=== PATIENT | female | born 1965 | race Caucasian/White ===

== ENCOUNTER 2025-02-13 17:30 | Inpatient (IN) ==
--- NOTE | 2025-02-13 17:55 | Emergency Department Note ---
Impression & Plan Right tibial fracture, Fall ED Provider Note CHIEF COMPLAINT: Fall HISTORY OF PRESENTING ILLNESS: This 59-year-old female patient presents to the emergency department via EMS with her for evaluation after a fall. The patient states that she was stepping up onto a milk crate using her left leg and when she went to put the right leg up on the milk crate, the milk crate went out from under her and she fell. She is unsure exactly how she landed. She is now having pain from the right knee down the lower leg. She had nausea immediately after she fell, but denies any nausea currently. She denies any vomiting. She did not hit her head. There was no loss of consciousness. She is not on any blood thinners. She denies any neck or back pain from the fall. Denies any pain in her arms or her left leg. Denies any chest pain, SOB, abdominal pain, or vomiting. She had a right knee arthroscopic surgery in 2013 by [facility], but does not remember what it was for. She denies any other previous injuries to the right knee. REVIEW OF SYSTEMS: See HPI for pertinent positives and pertinent negatives. ALLERGIES: NKDA, but she does not want to take Augmentin or Scopolamine MEDICATIONS: Prilosec 20 mg QD, Atorvastatin QHS, Ozempic 1 mg PAST MEDICAL HISTORY: History of gastric bypass surgery. High cholesterol. Diabetes. Fibromyalgia. Right knee arthroscopy PHYSICAL EXAM: VITALS: Vitals are noted on the nurse's note and reviewed by myself. GENERAL: No acute distress, non-diaphoretic. SKIN: The skin was without obvious lacerations or abrasions. Capillary reflex less than 2 seconds. HEAD: Normocephalic. No scalp tenderness or step-offs felt. EYES: Pupils equal round and reactive to light and accommodation. Conjunctivae without injection, sclerae without icterus. Extraocular movements intact. No nystagmus. MOUTH: Mucous membranes moist. Pharynx without erythema or exudate. Uvula midline. Airway patent. Tongue does not deviate. NECK: Supple without nuchal rigidity. Cervical spine is nontender. Full range of motion of the neck without tenderness. HEART: Regular rate and rhythm without murmurs gallops or rubs. LUNGS: Clear to auscultation bilaterally without wheezes, rales or rhonchi. No retractions or accessory muscle use. CHEST: No chest wall tenderness. ABDOMEN: Positive bowel sounds x 4. Normal tympanic percussion. Soft, nontender, without masses or organomegaly. No guarding or rebound tenderness. MUSCULOSKELETAL: No tenderness of the thoracic or lumbar spine. No tenderness with pelvic rocking. The patient is maximally tender to palpation over the entire right knee. Also mild tenderness to palpation into the mid to proximal right tib-fib. Initially the patient had no pain or tenderness to palpation of the right hip, but throughout her stay, she did develop pain in the right hip. No tenderness to palpation over the remainder of the right lower extremity. She is unable to move the right knee at all due to significant pain. She still has normal sensation to light and sharp touch of the right lower extremity with normal warmth. Full range of motion without tenderness to palpation in all remaining extremities. Peripheral pulses 2+ and equal in the bilateral upper and lower extremities. NEURO: Patient was alert and oriented to person place and time. Normal mental status exam. Normal sensation to light and sharp touch. No focal neurological deficits. DIFFERENTIAL DIAGNOSIS: Differential diagnosis includes concussion, contusion, fracture, subluxation, dislocation, subdural hematoma, epidural hematoma, intraparenchymal hemorrhage, contusion, ligamentous injury, neurovascular, compartment syndrome, rhabdomyolysis, intra-abdominal injury, splenic rupture, hepatic rupture, rib fractures, cardiac contusion, pneumothorax, hemothorax, cardiac tamponade, intrathoracic injury, neurologic, as well as other pathologies. ED COURSE AND MEDICAL DECISION MAKING: MEDICATIONS GIVEN: Morphine 6 mg IM and Zofran 4 mg ODT. 500 mL normal saline solution bolus. Phenergan 25 mg IV. Dilaudid 0.25 mg IV. INTERPRETATION OF LABS: I interpreted the labs with full lab results as below in the lab section of this note. Laboratory results pertinent to the emergent complaint are discussed in the MDM section below. The patient was advised to follow up with their PCP and/or specialist(s) for further outpatient monitoring and management of any abnormal results. INTERPRETATION OF IMAGING: Imaging studies were interpreted by myself and read by radiology as per the imaging section of this note. The patient was advised to follow up with their PCP and/or specialist(s) for further outpatient management of any non-emergent abnormal findings. X-rays of the right knee and tib-fib show an acute comminuted intra-articular fracture of the proximal right tibia with an associated lipohemarthrosis. X- rays of the right hip with pelvis were negative for acute fracture or dislocation. CT scan of the right knee without contrast with 3D reconstruction show a comminuted impacted fracture primarily involving the lateral tibial plateau with up to 1 cm impaction noted. A component of the fracture extends in a vertical plane along the anterior and posterior tibial cortex extending approximately 5 cm from the tibial plateau. Small volume traumatic suprapatellar joint effusion with a fat/fluid level. CONSULTATIONS: Parrish Gregory PA-C of orthopedics. On-call hospitalist. SPLINTING: Definitive fracture care was performed by myself. The patient was placed in a knee immobilizer under my direction. Neurovascular status was rechecked and intact. MDM SUMMARY: The patient was seen during a time of extreme volume and extreme acuity. Nursing triage protocols were initiated with imaging studies conducted by protocol in the triage area. The patient was initially evaluated in a sub- waiting room and then re-evaluated once they were taken back to an exam room. The patient was trying to step up onto a milk crate when the milk crate went out from under her causing an injury to the right knee and lower leg. The patient denies any injury other than the right knee and lower leg. However, she did develop some right hip pain during her stay. The patient denies hitting her head. She is not on any blood thinners. She is unable to move the right knee or bear any weight. The patient was initially given morphine 6 mg IM and Zofran 4 mg ODT. X-rays of the right knee and tib-fib show an acute comminuted intra-articular fracture of the proximal right tibia with an associated lipohemarthrosis. X-rays of the right hip with pelvis were negative for acute fracture or dislocation. I spoke with Parrish Gregory PA-C of orthopedics who discussed the case with Dr. Harrison. The recommendation was to obtain a CT scan of the knee with 3D reconstruction. The patient is to be placed in a knee immobilizer with nonweightbearing status. The patient could then be sent home with follow-up visit Monday if her pain was able to be controlled. The patient was placed in the knee immobilizer. The patient required additional pain medication so an IV was placed and labs were drawn. The patient was given 500 mL NSS bolus, Dilaudid 0.25 mg IV and Phenergan 25 mg IV for some additional nausea. CT scan of the right knee without contrast with 3D reconstruction show a comminuted impacted fracture primarily involving the lateral tibial plateau with up to 1 cm impaction noted. A component of the fracture extends in a vertical plane along the anterior and posterior tibial cortex extending approximately 5 cm from the tibial plateau. Small volume traumatic suprapatellar joint effusion with a fat/fluid level. White blood cell count mildly elevated 11.54. Hemoglobin normal at 15.7. Platelet count normal at 261. Coags were normal. Glucose 118, AST 62, and alk phos 130. CMP otherwise normal. I discussed discharge home with outpatient orthopedic follow-up with the patient. However, the patient stated that anytime she tried to move the leg she had increased pain. The patient was unable to ambulate even to the bathroom in the ER due to her pain and difficulty with ambulation from the tibial plateau fracture. The patient states that her also recently had back surgery and is unable to help care for her at home. Therefore, it was felt the patient would benefit from admission for ambulatory dysfunction from the tibial plateau fracture and for continued pain control. I spoke with the on-call hospitalist who agreed to admit the patient for further evaluation and treatment. Please refer to their dictation for further details. The patient's care was transferred in stable condition. DIAGNOSIS: Right tibial plateau fracture Fall Past Med/Surg History Problem List (Updated 02/14/25 @ 02:31 by Joseline Frazier PA-C) Fall (Acute) Right tibial fracture (Acute) Social History Smoking Status: Never smoker Preferred Language: Lao Feels Safe at Home: Yes Allergies Allergies Allergy/AdvReac Type Severity Reaction Status Date / Time amoxicillin [From Augmentin] AdvReac Intermediate Vomiting Verified 02/13/25 21:47 clavulanic acid AdvReac Intermediate Vomiting Verified 02/13/25 21:47 [From Augmentin] pregabalin [From Lyrica] AdvReac Unknown CONTRAINDICATED Verified 02/13/25 21:47 WITH GASTRIC BYPASS Home Meds Home Medications Medication Instructions Recorded Confirmed atorvastatin 20 mg tablet 20 mg PO HS 02/13/25 02/13/25 calcium 500 mg (as citrate)-vit D3 1 tab PO HS 02/13/25 02/13/25 12.5 mcg (500 unit) chewable tablet cyanocobalamin (vitamin B-12) 1,000 mcg IM .Q OTHER MONTH 02/13/25 02/13/25 1,000 mcg/mL injection solution loratadine 10 mg tablet (Claritin) 10 mg PO DAILY 02/13/25 02/13/25 multivitamin with iron 1 tab PO DAILY 02/13/25 02/13/25 omega [id number]-fish oil 1,000 mg 1 cap PO HS 02/13/25 02/13/25 (120 mg-180 mg) capsule (Fish Oil) omeprazole 20 mg capsule,delayed 20 mg PO QAM 02/13/25 02/13/25 release semaglutide 1 mg/dose (4 mg/3 mL) 1 mg subcut WK 02/13/25 02/13/25 subcutaneous pen injector (Ozempic) Results & Data (ED) Vital Signs Vital Signs - 24 hr 02/13/25 17:42 02/13/25 20:36 02/13/25 22:30 Temperature 36.7 C Temperature Source Skin Pulse Rate 71 Pulse Rate [Right Finger] 88 69 Pulse Rhythm [Right Finger] Regular Pulse Strength [Right Finger] Normal Respiratory Rate 18 17 18 Respiratory Effort / Characteristics Non-Labored Spontaneous Non-Labored Spontaneous Non-Labored Spontaneous Respiratory Depth Normal Normal Normal Respiratory Pattern Regular Regular Regular Blood Pressure 130/69 Blood Pressure [Right Arm] 128/58 L 136/64 Blood Pressure Mean 89 Blood Pressure Mean [Right Arm] 81 88 Blood Pressure Position [Right Arm] Lying Pulse Oximetry 98 94 95 Oxygen Delivery Method Room Air Room Air Room Air Sepsis Recent Fever Within 48 Hours No Sepsis New/Unexplained Change in Mental Status N/A Sepsis Action Taken by Nursing No Action Required Laboratory Data 02/13/25 19:47 02/13/25 19:47 Lab Results 02/13/25 Range/Units 19:47 WBC 11.54 H (4.8-10.8) K/ul RBC 5.24 (4.20-5.40) M/uL Hgb 15.7 (12.0-16.0) g/dl Hct 45.1 (37.0-47.0) % MCV 86.1 (80.0-100.0) fL MCH 30.0 (25.0-34.0) pg MCHC 34.8 (32.0-36.0) g/dL RDW Std Deviation 39.3 (36.4-46.3) fL RDW Coeff of Amol 12.6 (11.5-14.5) % Plt Count 261 (130-400) K/uL MPV 10.7 (9.4-12.4) fL Immature Gran % (Auto) 0.3 % Neut % (Auto) 82.3 % Lymph % (Auto) 12.7 % [place] % (Auto) 3.8 % Eos % (Auto) 0.4 % Baso % (Auto) 0.5 % Neut # (Auto) 9.49 H (1.40-6.50) K/uL Lymph # (Auto) 1.47 (1.20-3.40) K/uL [place] # (Auto) 0.44 (0.11-0.59) K/uL Eos # (Auto) 0.05 (0.00-0.50) K/uL Baso # (Auto) 0.06 (0.00-0.20) K/uL Immature Gran # (Auto) 0.03 (0.01-0.20) K/uL PT 10.9 (9.0-12.0) Seconds INR 1.0 (0.9-1.1) APTT 26 (21-31) Seconds PTT Ratio 1.0 Sodium 139 (136-145) mmol/L Potassium 3.7 (3.5-5.1) mmol/L Chloride 102 (98-107) mmol/L Carbon Dioxide 28 (21-32) mmol/L Anion Gap 9 (3-11) BUN 20 (6-23) mg/dl Creatinine 0.80 (0.6-1.2) mg/dl Est Cr Clr Drug Dosing Not Reportable eGFR 84.30 BUN/Creatinine Ratio 25.0 H (10-20) Glucose 118 H (70-99(Fasting)) mg/dl Calcium 9.9 (8.6-10.3) mg/dl Total Bilirubin 0.8 (0.2-1.0) mg/dl AST 62 H (13-39) U/L ALT 40 (7-52) U/L Alkaline Phosphatase 130 H (34-104) U/L Total Protein 7.7 (6.0-8.3) gm/dl Albumin 4.5 (3.4-5.0) gm/dl Globulin 3.2 (2.5-4.0) gm/dl Albumin/Globulin Ratio 1.4 (0.9-2) Administered Medications Discontinued Medications Hydromorphone HCl (Hydromorphone Inj 0.5 Mg/0.5 Ml Syr) 0.25 mg IV NOW STA Stop: 02/13/25 21:27 Last Admin: 02/13/25 21:29 Dose: 0.25 mg Documented By: RAMÓN Promethazine HCl (Phenergan) 25 mg in 51 mls @ 204 mls/hr IV NOW STA Stop: 02/13/25 19:54 Last Infusion: 02/13/25 20:08 Dose: Infused Documented By: Admin: 02/13/25 19:53 Dose: 204 mls/hr Documented By: RAMÓN Sodium Chloride (Nss) 500 mls @ 999 mls/hr IV .Q31M ONE Stop: 02/13/25 20:13 Last Infusion: 02/13/25 20:25 Dose: Infused Documented By: Admin: 02/13/25 19:53 Dose: 999 mls/hr Documented By: RAMÓN Morphine Sulfate (Morphine Sulfate 10 Mg/Ml Carp/Vial) 6 mg IM NOW STA Stop: 02/13/25 18:47 Last Admin: 02/13/25 19:11 Dose: 6 mg Documented By: DENIZ Ondansetron HCl (Ondansetron 4 Mg Od Tab) 4 mg PO NOW STA Stop: 02/13/25 18:47 Last Admin: 02/13/25 19:11 Dose: 4 mg Documented By: DENIZ Imaging Data Radiologist's Impression: Knee X-Ray 02/13/25 17:51 Clinical History: Trauma 2 views of the right knee are submitted for review. Findings: There is an acute mildly depressed fracture of the lateral tibial plateau, with a nondisplaced fracture line extending into the proximal tibial metaphysis No subluxation or dislocation is seen. No significant arthritic changes are noted. No other osseous abnormality is identified. There are no radiopaque foreign bodies. There is a large knee effusion with a fat fluid level Impression: Acute comminuted intra-articular fracture of the proximal right tibia, with an associated lipohemarthrosis ACT 112: Positive. There are findings on this exam that require communication between the performing entity and the patient following Patient Test Result Information Act ([place] ACT 112) guidelines. Electronically signed by Farooki, Diomedes 02-13-2025 7:53 PM Tibia/Fibula X-Ray 02/13/25 17:51 Clinical History: Trauma 3 views of the right lower leg are submitted for review. Findings: There is an acute fracture of the lateral tibial plateau and proximal tibial metaphysis No subluxation or dislocation is seen. There is a plantar calcaneal spur. No significant arthritic changes are noted. No other osseous abnormality is identified. There are no radiopaque foreign bodies. Impression: Acute fracture of the proximal right tibia Electronically signed by Diomedes Wyatt 02-13-2025 7:54 PM Hip/Pelvis X-Ray 02/13/25 19:02 Clinical History: Pain after fall 3 views of the pelvis and right hip are submitted for review. Findings: No fracture or dislocation is seen. No significant arthritic changes are noted. No other osseous abnormality is identified. There are no radiopaque foreign bodies. Impression: Unremarkable radiographs of the pelvis and right hip Electronically signed by Diomedes Wyatt 02-13-2025 7:[address] 02/13/25 19:40 Exam(s): CT RIGHT KNEE Without Contrast EXAM: CT Right Lower Extremity Without Intravenous Contrast, Knee CLINICAL HISTORY: with 3D reconstruction - tibial plateau fracture. TECHNIQUE: Axial computed tomography images of the right knee without intravenous contrast. CTDI is 24.91 mGy and DLP is 484.3 mGy-cm. Automated exposure control was utilized for the study. A dose lowering technique was utilized adhering to the principles of ALARA. 3D reconstructed images were created and reviewed. COMPARISON: No relevant prior studies available. FINDINGS: Bones/joints: Comminuted impacted fracture primarily involving the lateral tibial plateau with up to 1 cm impaction noted. A component of the fracture extends in a vertical plane along the posterior proximal tibial metaphyseal cortex, approximately 5 cm distal from the tibial plateau. There is also disruption of the anterior cortex which extends in an oblique medial direction. The proximal fibula is intact. The distal femur is intact. The patella is intact. Small volume traumatic suprapatellar joint effusion with a fat-fluid level. No dislocation. Soft tissues: No other significant overlying acute traumatic soft tissue abnormality identified. IMPRESSION: 1. Comminuted impacted fracture primarily involving the lateral tibial plateau with up to 1 cm impaction noted. A component of the fracture extends in a vertical plane along the anterior and posterior tibial cortex, extending approximately 5 cm from the tibial plateau, as detailed above. 2. Small volume traumatic suprapatellar joint effusion with a fat-fluid level. No other significant soft tissue abnormality. Electronically signed by: Marty Rayo MD 02/13/25 22:02 PM Discharge Plan Visit Data Chief Complaint: Leg Injury/Pain Stated Complaint: Fall ED Provider: Aimee Trevizo ED Midlevel Provider: Joseline Frazier Discharge Problem: Right tibial fracture, Fall Patient Disposition: Admitted As Inpatient Condition: Fair Discharge Instructions Interventions: ED Discharge Assessment Last Done: 02/14/25 01:04 Discharge Problem: Right tibial fracture Qualifiers: Encounter type: initial encounter Fracture type: closed Fall Qualifiers: Encounter type: initial encounter Qualified Code(s): W19.XXXA - Unspecified fall, initial encounter
[2025-02-13] MEDS: ONDANSETRON 4 MG OD TAB PO STA (19:11)
[2025-02-13] MEDS: MoRPHine SULFATE 10 MG/ML CARP/VIAL IM STA (19:11)
--- NOTE | 2025-02-13 19:52 | XRay Report ---
Clinical History: Pain after fall 3 views of the pelvis and right hip are submitted for review. Findings: No fracture or dislocation is seen. No significant arthritic changes are noted. No other osseous abnormality is identified. There are no radiopaque foreign bodies. Impression: Unremarkable radiographs of the pelvis and right hip Electronically signed by Diomedes Wyatt 02-13-2025 7:52 PM
[2025-02-13] MEDS: SODIUM CHLORIDE 0.9% 500 ML IV ONE (19:53)
[2025-02-13] MEDS: PROMETHAZINE 25 MG/51 ML BAG IV STA (19:53)
--- NOTE | 2025-02-13 19:53 | XRay Report ---
Clinical History: Trauma 2 views of the right knee are submitted for review. Findings: There is an acute mildly depressed fracture of the lateral tibial plateau, with a nondisplaced fracture line extending into the proximal tibial metaphysis No subluxation or dislocation is seen. No significant arthritic changes are noted. No other osseous abnormality is identified. There are no radiopaque foreign bodies. There is a large knee effusion with a fat fluid level Impression: Acute comminuted intra-articular fracture of the proximal right tibia, with an associated lipohemarthrosis ACT 112: Positive. There are findings on this exam that require communication between the performing entity and the patient following Patient Test Result Information Act ([place] ACT 112) guidelines. Electronically signed by Diomedes Wyatt 02-13-2025 7:53 PM
--- NOTE | 2025-02-13 19:54 | XRay Report ---
Clinical History: Trauma 3 views of the right lower leg are submitted for review. Findings: There is an acute fracture of the lateral tibial plateau and proximal tibial metaphysis No subluxation or dislocation is seen. There is a plantar calcaneal spur. No significant arthritic changes are noted. No other osseous abnormality is identified. There are no radiopaque foreign bodies. Impression: Acute fracture of the proximal right tibia Electronically signed by Diomedes Wyatt 02-13-2025 7:54 PM
[2025-02-13 20:00] LABS: Hematocrit (blood only) 45.1 % (37.0-47.0); Hemoglobin 15.7 g/dl (12.0-16.0); Immature Granulocytes # (auto) 0.03 K/uL (0.01-0.20); Immature Granulocytes % (auto) 0.3 %; Mean Corpuscular Hemoglobin 30.0 pg (25.0-34.0); Mean Corpuscular Volume 86.1 fL (80.0-100.0); Platelet Count 261 K/uL (130-400); RDW Standard Deviation 39.3 fL (36.4-46.3); Red Blood Count 5.24 M/uL (4.20-5.40); White Blood Count 11.54 K/ul (4.8-10.8)
[2025-02-13 20:18] LABS: Alanine Aminotransferase 40 U/L (7-52); Albumin Globulin Ratio 1.4 (0.9-2); Albumin Level 4.5 gm/dl (3.4-5.0); Alkaline Phosphatase 130 U/L (34-104); Anion Gap 9 (3-11); Bilirubin,Total 0.8 mg/dl (0.2-1.0); Blood Urea Nitrogen 20 mg/dl (6-23); Calcium 9.9 mg/dl (8.6-10.3); Carbon Dioxide 28 mmol/L (21-32); Chloride 102 mmol/L (98-107); Globulin 3.2 gm/dl (2.5-4.0); Glucose 118 mg/dl (70-99(Fasting)); Potassium 3.7 mmol/L (3.5-5.1); Sodium 139 mmol/L (136-145); Total Protein 7.7 gm/dl (6.0-8.3)
[2025-02-13 21:28] LABS: INR 1.0 (0.9-1.1); Partial Thromboplastin Time 26 Seconds (21-31); Prothrombin Time 10.9 Seconds (9.0-12.0)
[2025-02-13] MEDS: HYDROmorphone INJ 0.5 MG/0.5 ML SYR IV STA (21:29)
--- NOTE | 2025-02-13 22:03 | CT Scan Report ---
Exam(s): CT RIGHT KNEE Without Contrast EXAM: CT Right Lower Extremity Without Intravenous Contrast, Knee CLINICAL HISTORY: with 3D reconstruction - tibial plateau fracture. TECHNIQUE: Axial computed tomography images of the right knee without intravenous contrast. CTDI is 24.91 mGy and DLP is 484.3 mGy-cm. Automated exposure control was utilized for the study. A dose lowering technique was utilized adhering to the principles of ALARA. 3D reconstructed images were created and reviewed. COMPARISON: No relevant prior studies available. FINDINGS: Bones/joints: Comminuted impacted fracture primarily involving the lateral tibial plateau with up to 1 cm impaction noted. A component of the fracture extends in a vertical plane along the posterior proximal tibial metaphyseal cortex, approximately 5 cm distal from the tibial plateau. There is also disruption of the anterior cortex which extends in an oblique medial direction. The proximal fibula is intact. The distal femur is intact. The patella is intact. Small volume traumatic suprapatellar joint effusion with a fat-fluid level. No dislocation. Soft tissues: No other significant overlying acute traumatic soft tissue abnormality identified. IMPRESSION: 1. Comminuted impacted fracture primarily involving the lateral tibial plateau with up to 1 cm impaction noted. A component of the fracture extends in a vertical plane along the anterior and posterior tibial cortex, extending approximately 5 cm from the tibial plateau, as detailed above. 2. Small volume traumatic suprapatellar joint effusion with a fat-fluid level. No other significant soft tissue abnormality. Electronically signed by: Marty Rayo MD 02/13/25 22:02 PM
--- NOTE | 2025-02-13 23:51 | History & Physical Report ---
Date of Service February 13, 2025 Assessment & Plan (1) Right tibial fracture: Plan: 59-year-old female past medical history significant for type 2 diabetes, dyslipidemia, fibromyalgia, bariatric surgery status, history of dysplastic nevus, presents with fall and found to have right tibial fracture. Patient states she was standing onto milk crate and trying to wash the car when she slipped fell down on the back. She could not move her right leg and was having significant pain and EMS was called and brought here. Denies hitting her head. Denies any loss of consciousness. Denies any chest pain. Denies dizziness. After falling down she felt nauseous. Still feel somewhat nauseous. No cough. No fevers. No runny nose or sore throat. Prior to falling down she was ambulating okay. She had a right knee arthroscopy surgery in the past and when climbing down steps she usually puts her left leg first and climbs down slowly.. Normal bowel and bladder movements .Hemodynamics are okay. Right tibial fracture Status post mechanical fall Pain control Ortho consult in a.m. for further recommendations Diabetes Hold Ozempic Sliding scale Will monitor Hyperlipidemia On statin GERD Omeprazole History of gastric bypass DVT prophylaxis SCDs on left leg for now Further anticoagulation after seen by orthopedics Disposition Medical floor Full code. History of Present Illness Chief Complaint: Status post fall. Right tibia fracture Primary Care Provider: Shani Covarrubias MD 59-year-old female past medical history significant for type 2 diabetes, dyslipidemia, fibromyalgia, bariatric surgery status, history of dysplastic nevus, presents with fall and found to have right tibial fracture. Patient states she was standing onto milk crate and trying to wash the car when she slipped fell down on the back. She could not move her right leg and was having significant pain and EMS was called and brought here. Denies hitting her head. Denies any loss of consciousness. Denies any chest pain. Denies dizziness. After falling down she felt nauseous. Still feel somewhat nauseous. No cough. No fevers. No runny nose or sore throat. Prior to falling down she was ambulating okay. She had a right knee arthroscopy surgery in the past and when climbing down steps she usually puts her left leg first and climbs down slowly.. Normal bowel and bladder movements .Hemodynamics are okay. Past medical history. As mentioned above. Past surgical history. Colonoscopy. Dental surgery. EGD. Excision of excess skin. Patellectomy.. Right knee arthroscopic surgery. Laparoscopy procedure liver. Laparoscopic gastric bypass surgery. Diagnostic laparoscopy. Laparoscopic cholecystectomy. Bilateral reduction of breast. Removal of neck Wrinkles. Tonsillectomy and adenoidectomy. Repair of bladder defect. Ultrasound-guided biopsy of the right breast. Smoking. . No smoking. No alcohol use. No drug use. Family history. Father had arthritic gout. Heart failure. Heart murmur. Obesity. Skin cancer. Mother had asthma. Colon cancer. Diabetes. Heart dise ase. Liver cancer. Lung disorder. Lung cancer. Osteoporosis. Stroke. Allergies Allergy/AdvReac Type Severity Reaction Status Date / Time amoxicillin [From Augmentin] AdvReac Intermediate Vomiting Verified 02/13/25 21:47 clavulanic acid AdvReac Intermediate Vomiting Verified 02/13/25 21:47 [From Augmentin] pregabalin [From Lyrica] AdvReac Unknown CONTRAINDICATED Verified 02/13/25 21:47 WITH GASTRIC BYPASS Home Medications Medication Instructions Recorded Confirmed Type atorvastatin 20 mg tablet 20 mg PO HS 02/13/25 02/13/25 History calcium 500 mg (as citrate)-vit D3 1 tab PO HS 02/13/25 02/13/25 History 12.5 mcg (500 unit) chewable tablet cyanocobalamin (vitamin B-12) 1,000 mcg IM .Q OTHER MONTH 02/13/25 02/13/25 History 1,000 mcg/mL injection solution loratadine 10 mg tablet (Claritin) 10 mg PO DAILY 02/13/25 02/13/25 History multivitamin with iron 1 tab PO DAILY 02/13/25 02/13/25 History omega 7-max-itd-fish oil 1,000 mg 1 cap PO HS 02/13/25 02/13/25 History (120 mg-180 mg) capsule (Fish Oil) omeprazole 20 mg capsule,delayed 20 mg PO QAM 02/13/25 02/13/25 History release semaglutide 1 mg/dose (4 mg/3 mL) 1 mg subcut WK 02/13/25 02/13/25 History subcutaneous pen injector (Ozempic) Past Med/Surg History Problem List (Updated 02/14/25 @ 02:31 by Joseline Frazier PA-C) Fall (Acute) Right tibial fracture (Acute) Social History Smoking Status: Never smoker Second Hand Exposure: No; Do You Dip or Chew Tobacco: No; Hx Alcohol Use: No Hx Substance Use: No Preferred Language: [place] Communication Ability: Effective 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 ENT- oropharynx clear Neck- supple, no JVD. Lungs- clear to auscultation no wheezing or crackles Heart- regular rate and rhythm; no murmur, no gallop. Abdomen- normal bowel sounds, soft, nontender, no distension Extremities- right leg in splint Neuro- alert, oriented PERRL, no facial palsy; no dysarthria; Results & Data Results & Data Vital Signs (Past 12 Hours) Vital Signs Temp Pulse Pulse Resp BP BP Pulse Ox 02/13/25 22:30 69 18 136/64 95 02/13/25 20:36 88 17 128/58 L 94 02/13/25 17:42 36.7 C 71 18 130/69 98 O2 Del Method 02/13/25 22:30 Room Air 02/13/25 20:36 Room Air 02/13/25 17:42 Room Air Diagnostic Findings Laboratory Results WBC 11.54 K/ul (4.8-10.8) H 02/13/25 19:47 RBC 5.24 M/uL (4.20-5.40) 02/13/25 19:47 Hgb 15.7 g/dl (12.0-16.0) 02/13/25 19:47 Hct 45.1 % (37.0-47.0) 02/13/25 19:47 MCV 86.1 fL (80.0-100.0) 02/13/25 19:47 MCH 30.0 pg (25.0-34.0) 02/13/25 19:47 MCHC 34.8 g/dL (32.0-36.0) 02/13/25 19:47 RDW Std Deviation 39.3 fL (36.4-46.3) 02/13/25 19:47 RDW Coeff of Amol 12.6 % (11.5-14.5) 02/13/25 19:47 Plt Count 261 K/uL (130-400) 02/13/25 19:47 MPV 10.7 fL (9.4-12.4) 02/13/25 19:47 Immature Gran % (Auto) 0.3 % 02/13/25 19:47 Neut % (Auto) 82.3 % 02/13/25 19:47 Lymph % (Auto) 12.7 % 02/13/25 19:47 Lucas % (Auto) 3.8 % 02/13/25 19:47 Eos % (Auto) 0.4 % 02/13/25 19:47 Baso % (Auto) 0.5 % 02/13/25 19:47 Neut # (Auto) 9.49 K/uL (1.40-6.50) H 02/13/25 19:47 Lymph # (Auto) 1.47 K/uL (1.20-3.40) 02/13/25 19:47 Lucas # (Auto) 0.44 K/uL (0.11-0.59) 02/13/25 19:47 Eos # (Auto) 0.05 K/uL (0.00-0.50) 02/13/25 19:47 Baso # (Auto) 0.06 K/uL (0.00-0.20) 02/13/25 19:47 Immature Gran # (Auto) 0.03 K/uL (0.01-0.20) 02/13/25 19:47 PT 10.9 Seconds (9.0-12.0) 02/13/25 19:47 INR 1.0 (0.9-1.1) 02/13/25 19:47 APTT 26 Seconds (21-31) 02/13/25 19:47 PTT Ratio 1.0 02/13/25 19:47 Sodium 139 mmol/L (136-145) 02/13/25 19:47 Potassium 3.7 mmol/L (3.5-5.1) 02/13/25 19:47 Chloride 102 mmol/L (98-107) 02/13/25 19:47 Carbon Dioxide 28 mmol/L (21-32) 02/13/25 19:47 Anion Gap 9 (3-11) 02/13/25 19:47 BUN 20 mg/dl (6-23) 02/13/25 19:47 Creatinine 0.80 mg/dl (0.6-1.2) 02/13/25 19:47 Est Cr Clr Drug Dosing Not Reportable 02/13/25 19:47 eGFR 84.30 02/13/25 19:47 BUN/Creatinine Ratio 25.0 (10-20) H 02/13/25 19:47 Glucose 118 mg/dl (70-99(Fasting)) H 02/13/25 19:47 Calcium 9.9 mg/dl (8.6-10.3) 02/13/25 19:47 Total Bilirubin 0.8 mg/dl (0.2-1.0) 02/13/25 19:47 AST 62 U/L (13-39) H 02/13/25 19:47 ALT 40 U/L (7-52) 02/13/25 19:47 Alkaline Phosphatase 130 U/L (34-104) H 02/13/25 19:47 Total Protein 7.7 gm/dl (6.0-8.3) 02/13/25 19:47 Albumin 4.5 gm/dl (3.4-5.0) 02/13/25 19:47 Globulin 3.2 gm/dl (2.5-4.0) 02/13/25 19:47 Albumin/Globulin Ratio 1.4 (0.9-2) 02/13/25 19:47 Impressions Knee X-Ray 02/13/25 17:51 Clinical History: Trauma 2 views of the right knee are submitted for review. Findings: There is an acute mildly depressed fracture of the lateral tibial plateau, with a nondisplaced fracture line extending into the proximal tibial metaphysis No subluxation or dislocation is seen. No significant arthritic changes are noted. No other osseous abnormality is identified. There are no radiopaque foreign bodies. There is a large knee effusion with a fat fluid level Impression: Acute comminuted intra-articular fracture of the proximal right tibia, with an associated lipohemarthrosis ACT 112: Positive. There are findings on this exam that require communication between the performing entity and the patient following Patient Test Result Information Act ([place] ACT 112) guidelines. Electronically signed by Diomedes Wyatt 02-13-2025 7:53 PM Tibia/Fibula X-Ray 02/13/25 17:51 Clinical History: Trauma 3 views of the right lower leg are submitted for review. Findings: There is an acute fracture of the lateral tibial plateau and proximal tibial metaphysis No subluxation or dislocation is seen. There is a plantar calcaneal spur. No significant arthritic changes are noted. No other osseous abnormality is identified. There are no radiopaque foreign bodies. Impression: Acute fracture of the proximal right tibia Electronically signed by Diomedes Wyatt 02-13-2025 7:54 PM Hip/Pelvis X-Ray 02/13/25 19:02 Clinical History: Pain after fall 3 views of the pelvis and right hip are submitted for review. Findings: No fracture or dislocation is seen. No significant arthritic changes are noted. No other osseous abnormality is identified. There are no radiopaque foreign bodies. Impression: Unremarkable radiographs of the pelvis and right hip Electronically signed by Diomedes Wyatt 02-13-2025 7:[address] 02/13/25 19:40 Exam(s): CT RIGHT KNEE Without Contrast EXAM: CT Right Lower Extremity Without Intravenous Contrast, Knee CLINICAL HISTORY: with 3D reconstruction - tibial plateau fracture. TECHNIQUE: Axial computed tomography images of the right knee without intravenous contrast. CTDI is 24.91 mGy and DLP is 484.3 mGy-cm. Automated exposure control was utilized for the study. A dose lowering technique was utilized adhering to the principles of ALARA. 3D reconstructed images were created and reviewed. COMPARISON: No relevant prior studies available. FINDINGS: Bones/joints: Comminuted impacted fracture primarily involving the lateral tibial plateau with up to 1 cm impaction noted. A component of the fracture extends in a vertical plane along the posterior proximal tibial metaphyseal cortex, approximately 5 cm distal from the tibial plateau. There is also disruption of the anterior cortex which extends in an oblique medial direction. The proximal fibula is intact. The distal femur is intact. The patella is intact. Small volume traumatic suprapatellar joint effusion with a fat-fluid level. No dislocation. Soft tissues: No other significant overlying acute traumatic soft tissue abnormality identified. IMPRESSION: 1. Comminuted impacted fracture primarily involving the lateral tibial plateau with up to 1 cm impaction noted. A component of the fracture extends in a vertical plane along the anterior and posterior tibial cortex, extending approximately 5 cm from the tibial plateau, as detailed above. 2. Small volume traumatic suprapatellar joint effusion with a fat-fluid level. No other significant soft tissue abnormality. Electronically signed by: Marty Rayo MD 02/13/25 22:02 PM Code Status & VTE Plan VTE Prophylaxis Plan VTE Prophylaxis will be ordered: Yes
[2025-02-14] MEDS ORDERED: ACETAMINOPHEN 325 MG TAB PO PRN (01:58)
[2025-02-14] MEDS ORDERED: HYDROmorphone INJ 0.5 MG/0.5 ML SYR IV PRN ×4 (01:58→16:18)
[2025-02-14] MEDS ORDERED: GLUCAGON FOR INJ 1 MG VIAL SQ PRN (01:58)
[2025-02-14] MEDS ORDERED: DEXTROSE 50% 50 ML SYRINGE IV PRN (01:58)
[2025-02-14] MEDS ORDERED: GLUCOSE 40% GEL 15 GM TUBE PO PRN (01:58)
[2025-02-14] MEDS ORDERED: GLUCOSE 10 TAB/TUBE PO PRN (01:58)
[2025-02-14] MEDS ORDERED: POLYETHYLENE (MIRALAX) 17 GM PACK PO PRN (01:58)
[2025-02-14] MEDS: SODIUM CHLORIDE 0.9% 1,000 ML IV SCH (02:24)
[2025-02-14] MEDS: INSULIN ASPART PER UNIT CHARGE SC SCH ×2 (02:30→17:05)
[2025-02-14] MEDS: HYDROmorphone INJ 0.5 MG/0.5 ML SYR IV STA (02:58)
[2025-02-14] MEDS: ONDANSETRON INJ 2 MG/ML 2 ML VIAL IV PRN (03:06)
[2025-02-14] MEDS: PROMETHAZINE 12.5 MG/50.5 ML BAG IV STA (04:26)
[2025-02-14 05:43] LABS: Hematocrit (blood only) 40.2 % (37.0-47.0); Hemoglobin 13.6 g/dl (12.0-16.0); Immature Granulocytes # (auto) 0.03 K/uL (0.01-0.20); Immature Granulocytes % (auto) 0.3 %; Mean Corpuscular Hemoglobin 29.3 pg (25.0-34.0); Mean Corpuscular Volume 86.6 fL (80.0-100.0); Platelet Count 215 K/uL (130-400); RDW Standard Deviation 40.3 fL (36.4-46.3); Red Blood Count 4.64 M/uL (4.20-5.40); White Blood Count 8.89 K/ul (4.8-10.8)
[2025-02-14 06:01] LABS: Anion Gap 1.0 (3-11); Blood Urea Nitrogen 15.0 mg/dl (6-23); Calcium 8.9 mg/dl (8.6-10.3); Carbon Dioxide 30.0 mmol/L (21-32); Chloride 105.0 mmol/L (98-107); Creatinine Clr Calc Pharmacy 81.8 ml/min; Glucose 132.0 mg/dl (70-99(Fasting)); Magnesium 1.6 mg/dl (1.7-2.4); Potassium 4.4 mmol/L (3.5-5.1); Sodium 136.0 mmol/L (136-145)
[2025-02-14 07:35] LABS: Hemoglobin A1C 5.6 % (4.5-5.6)
[2025-02-14] MEDS: LORATADINE 10 MG TAB PO SCH (09:08)
[2025-02-14] MEDS: ACETAMINOPHEN 500 MG TAB PO SCH (09:09)
[2025-02-14] MEDS: CEROVITE ADV FORMULA TAB PO SCH (09:09)
[2025-02-14] MEDS: MAGNESIUM SULFATE / D5W 1 GM/100 ML BAG IV SCH (09:15)
[2025-02-14] MEDS: PROMETHAZINE 12.5 MG/50.5 ML BAG IV PRN (09:43)
[2025-02-14] MEDS: HYDROmorphone INJ 0.5 MG/0.5 ML SYR IV PRN (10:02)
[2025-02-14] MEDS ORDERED: Nursing to Pharmacy Communication SCH (16:30)
[2025-02-14] MEDS: CARBOHYDRATES FOR HYPOGLYCEMIA PO PRN (16:37)
--- NOTE | 2025-02-14 16:55 | Hospitalist Progress Note ---
Date of Service February 14, 2025 Assessment & Plan (1) Right tibial fracture: Plan: Ms Dukes is a 59-year-old female past medical history significant for type 2 diabetes, dyslipidemia, fibromyalgia, bariatric surgery status, history of dysplastic nevus, presents with fall admitted for pain management of a right comminuted impacted fracture of lateral tibial plateau. #Right tibial plateau fracture Status post mechanical fall Pain control Ortho consulted for recommendations -NWB to right foot PT/OT #Diabetes Hold Ozempic Sliding scale Will monitor #Hyperlipidemia On statin #GERD #History of gastric bypass continue Omeprazole DVT prophylaxis SCDs on left leg for now Further anticoagulation after seen by orthopedics Disposition Medical floor Full code. Admission and Anticipated Discharge Date Admission Date: February 13, 2025 Subjective Reports notable pain in her right leg denies any other symptoms, but states the pain is difficult to manage at this time Physical Exam Constitutional: WD/WN, vitals as above Respiratory: normal respiratory effort, lungs clear to auscultation Cardiovascular: RRR, no murmur, no edema Musculoskeletal: right immobilizer in place Results & Data Results & Data Vital Signs (Past 12 Hours) Vital Signs Temp Pulse Resp BP Pulse Ox O2 Del Method 02/14/25 14:57 36.6 C 63 18 108/69 95 Room Air 02/14/25 07:00 36.6 C 69 19 99/64 L 96 Room Air (1) Right tibial fracture Encounter type: initial encounter Fracture type: closed
[2025-02-14] MEDS: CALCIUM 600MG + VIT D 400 IU TAB PO SCH (21:28)
[2025-02-14] MEDS: ATORVASTATIN 20 MG TAB PO SCH (21:28)
[2025-02-14] MEDS: ENOXAPARIN INJ 40 MG/0.4 ML SYR SQ SCH (21:34)
[2025-02-15 05:52] LABS: Hematocrit (blood only) 38.9 % (37.0-47.0); Hemoglobin 13.0 g/dl (12.0-16.0); Mean Corpuscular Hemoglobin 28.9 pg (25.0-34.0); Mean Corpuscular Volume 86.4 fL (80.0-100.0); Platelet Count 208 K/uL (130-400); RDW Standard Deviation 40.1 fL (36.4-46.3); Red Blood Count 4.50 M/uL (4.20-5.40); White Blood Count 6.92 K/ul (4.8-10.8)
[2025-02-15 06:10] LABS: Anion Gap 5.0 (3-11); Blood Urea Nitrogen 13.0 mg/dl (6-23); Calcium 8.7 mg/dl (8.6-10.3); Carbon Dioxide 29.0 mmol/L (21-32); Chloride 104.0 mmol/L (98-107); Creatinine Clr Calc Pharmacy 75.4 ml/min; Glucose 87.0 mg/dl (70-99(Fasting)); Potassium 4.1 mmol/L (3.5-5.1); Sodium 138.0 mmol/L (136-145)
--- NOTE | 2025-02-15 07:48 | Orthopedic Consultation ---
Date of Service February 15, 2025 Assessment & Plan (1) Right tibial fracture: 59-year-old female consulted for right tibial plateau fracture. Patient has approximate 1 cm impaction fracture in the posterior lateral portion of the tibial plateau as well as a oblique fracture of the medial plateau. She will ma intain knee immobilizer for approximately the next 6 weeks. She is to be nonweightbearing on the right lower extremity. Will see how this heals over time. As healing progresses she becomes weightbearing we will assess functionality with potential need for total knee replacement in approximately 3 to 4 months. Continue Current Treatment Weight bearing status: Nonweightbearing of right lower extremity Daily treatment: Physical Therapy/ Occupational Therapy per protocol Pain control Continue to monitor for neurovascular compromise. Continue DVT prophylaxis Disposition: Orthopedically ready for discharge once cleared by physical therapy and is medically stable. Follow-up with Dr. [facility] in 3 weeks. Remainder care per primary team History of Present Illness Reason for Consultation: Right tibial plateau fracture Requesting Physician: . Attending Physician: Annalise Kim MD 59-year-old female past medical history significant for type 2 diabetes, dyslipidemia, fibromyalgia, bariatric surgery status, history of dysplastic nevus, presents with fall and found to have right tibial fracture. Patient states she was standing onto milk crate and trying to wash the car when she slipped fell down on the back. She could not move her right leg and was having significant pain and EMS was called and brought her to the emergency room on 02/13/2025. She was admitted to the hospital for pain control and social concerns that her cannot help her due to recent history of back surgery. Allergies Allergy/AdvReac Type Severity Reaction Status Date / Time amoxicillin [From Augmentin] AdvReac Intermediate Vomiting Verified 02/13/25 21:47 clavulanic acid AdvReac Intermediate Vomiting Verified 02/13/25 21:47 [From Augmentin] pregabalin [From Lyrica] AdvReac Unknown CONTRAINDICATED Verified 02/13/25 21:47 WITH GASTRIC BYPASS scopolamine AdvReac Unknown Verified 02/14/25 08:53 Home Medications Medication Instructions Recorded Confirmed Type atorvastatin 20 mg tablet 20 mg PO HS 02/13/25 02/13/25 History calcium 500 mg (as citrate)-vit D3 1 tab PO HS 02/13/25 02/13/25 History 12.5 mcg (500 unit) chewable tablet cyanocobalamin (vitamin B-12) 1,000 mcg IM .Q OTHER MONTH 02/13/25 02/13/25 History 1,000 mcg/mL injection solution loratadine 10 mg tablet (Claritin) 10 mg PO DAILY 02/13/25 02/13/25 History multivitamin with iron 1 tab PO DAILY 02/13/25 02/13/25 History omega 7-ygg-aks-fish oil 1,000 mg 1 cap PO HS 02/13/25 02/13/25 History (120 mg-180 mg) capsule (Fish Oil) omeprazole 20 mg capsule,delayed 20 mg PO QAM 02/13/25 02/13/25 History release semaglutide 1 mg/dose (4 mg/3 mL) 1 mg subcut WK 02/13/25 02/13/25 History subcutaneous pen injector (Ozempic) Past Med/Surg History Problem List (Updated 02/15/25 @ 07:41 by Jn Jensen PA-C) Fall (Acute) Right tibial fracture (Acute) Social History Smoking Status: Never smoker Second Hand Exposure: No; Do You Dip or Chew Tobacco: No; Hx Alcohol Use: No Hx Substance Use: No Preferred Language: German Communication Ability: Effective Associate Attorney Required: No Beliefs That Will Affect Care: None Current Living Situation: Spouse Current Living Situation Comment: 1 story with a basement Other Information That Helps Us Care for You: No Feels Safe at Home: Yes Safety Concerns: Feels Safe At This Time Assistive Devices: Cane, Crutches and Walker Review of Systems All systems reviewed & are unremarkable except as noted in HPI & below. Physical Exam Physical exam was conducted at bedside. 59-year-old female in good spirits reclined in hospital bed with right knee in knee immobilizer. Right lower extremity shows no evidence of neurovascular compromise. Further exam was not conducted due to pain. Results & Data Results & Data Laboratory Results 02/15/25 02/14/25 02/14/25 05:21 20:40 16:55 WBC 6.92 RBC 4.50 Hgb 13.0 Hct 38.9 MCV 86.4 MCH 28.9 MCHC 33.4 RDW Std Deviation 40.1 RDW Coeff of Amol 12.9 Plt Count 208 MPV 10.7 Sodium 138 Potassium 4.1 Chloride 104 Carbon Dioxide 29 Anion Gap 5 BUN 13 Creatinine 0.77 Est Cr Clr Drug Dosing 75.4 eGFR 88.26 BUN/Creatinine Ratio 16.9 Glucose 87 POC Glucose 115 H 115 H Calcium 8.7 Hepatitis C Ab Screen 02/14/25 02/14/25 02/14/25 16:34 16:29 11:57 WBC RBC Hgb Hct MCV MCH MCHC RDW Std Deviation RDW Coeff of Amol Plt Count MPV Sodium Potassium Chloride Carbon Dioxide Anion Gap BUN Creatinine Est Cr Clr Drug Dosing eGFR BUN/Creatinine Ratio Glucose POC Glucose 68 L* 68 L* 88 Calcium Hepatitis C Ab Screen 02/14/25 05:29 WBC RBC Hgb Hct MCV MCH MCHC RDW Std Deviation RDW Coeff of Amol Plt Count MPV Sodium Potassium Chloride Carbon Dioxide Anion Gap BUN Creatinine Est Cr Clr Drug Dosing eGFR BUN/Creatinine Ratio Glucose POC Glucose Calcium Hepatitis C Ab Screen Negative Diagnostic Findings Exam(s): CT RIGHT KNEE Without Contrast EXAM: CT Right Lower Extremity Without Intravenous Contrast, Knee CLINICAL HISTORY: with 3D reconstruction - tibial plateau fracture. TECHNIQUE: Axial computed tomography images of the right knee without intravenous contrast. CTDI is 24.91 mGy and DLP is 484.3 mGy-cm. Automated exposure control was utilized for the study. A dose lowering technique was utilized adhering to the principles of ALARA. 3D reconstructed images were created and reviewed. COMPARISON: No relevant prior studies available. FINDINGS: Bones/joints: Comminuted impacted fracture primarily involving the lateral tibial plateau with up to 1 cm impaction noted. A component of the fracture extends in a vertical plane along the posterior proximal tibial metaphyseal cortex, approximately 5 cm distal from the tibial plateau. There is also disruption of the anterior cortex which extends in an oblique medial direction. The proximal fibula is intact. The distal femur is intact. The patella is intact. Small volume traumatic suprapatellar joint effusion with a fat-fluid level. No dislocation. Soft tissues: No other significant overlying acute traumatic soft tissue abnormality identified. IMPRESSION: 1. Comminuted impacted fracture primarily involving the lateral tibial plateau with up to 1 cm impaction noted. A component of the fracture extends in a vertical plane along the anterior and posterior tibial cortex, extending approximately 5 cm from the tibial plateau, as detailed above. 2. Small volume traumatic suprapatellar joint effusion with a fat-fluid level. No other significant soft tissue abnormality. Electronically signed by: Marty Rayo MD 02/13/25 22:02 PM Dictated: 02/13/252201 Transcribed: 02/13/252201 PG Care Time/CCT Total # of Minutes Spent Total Time Spent with Patient: Total time spent is greater than 50% in coordination of care (as documented) at patient's floor/unit and/or counseling patient: [place] [address] IN/OBS CONSULT LVL 4,60M Patient Type New History Problem Focused Exam Problem Focused Medical Decision Making Moderate Complexity Diagnoses Closed fracture of proximal end of right tibia, unspecified fracture morphology, initial encounter S82.101A Encounter type: initial encounter Fracture type: closed Tibia location: proximal Fracture morphology: unspecified fracture morphology (1) Right tibial fracture Encounter type: initial encounter Fracture type: closed Tibia location: proximal Fracture morphology: unspecified fracture morphology Qualified Code(s): S82.101A - Unspecified fracture of upper end of right tibia, initial encounter for closed fracture
[2025-02-15] MEDS: HYDROmorphone INJ 0.5 MG/0.5 ML SYR IV PRN (10:58)
--- NOTE | 2025-02-15 13:20 | CT Scan Report ---
Clinical history: Right hip pain Technique: Axial computed tomography images were obtained of the right hip without intravenous contrast. Sagittal and coronal reconstructions were obtained Findings: No fracture is identified. No subluxation or dislocation is seen. There is mild right hip osteoarthritis. No focal osseous lesion is evident The visualized musculature appears unremarkable. No soft tissue mass or fluid collection is seen. No foreign body is evident Impression: 1. No definite fracture 2. Mild osteoarthritis Electronically signed by Diomedes Wyatt 02-15-2025 13:19 PM
[2025-02-15] MEDS: PROMETHAZINE HCL 25 MG TAB PO PRN (13:34)
--- NOTE | 2025-02-15 14:20 | Hospitalist Progress Note ---
Date of Service February 15, 2025 Assessment & Plan (1) Right tibial fracture: Plan: Ms Dukes is a 59-year-old female past medical history significant for type 2 diabetes, dyslipidemia, fibromyalgia, bariatric surgery status, history of dysplastic nevus, presents with fall admitted for pain management of a right comminuted impacted fracture of lateral tibial plateau. Evaluated by pt and requires wheelchair with elevated right leg rest. Patient endorsed right hip pain--CT ordered with some mild osteoarthritis. #Right tibial plateau fracture Status post mechanical fall Pain control Ortho consulted for recommendations -NWB to right foot -wheelchair with elevated rest Schedule tylenol, schedule tramadol oxycodone prn, Dilaudid for severe PT/OT #Diabetes Hold Ozempic Sliding scale Will monitor #Hyperlipidemia On statin #GERD #History of gastric bypass continue Omeprazole DVT prophylaxis SCDs/enoxaparin Disposition Medical floor Full code. Admission and Anticipated Discharge Date Admission Date: February 13, 2025 Subjective Patient reports ongoing pain difficult to control in knee endorses nausea associated with pain as well as pain medicine Physical Exam Constitutional: WD/WN, vitals as above Respiratory: normal respiratory effort, lungs clear to auscultation Cardiovascular: RRR, no murmur, no edema Musculoskeletal: right knee immobilzer Results & Data Results & Data Vital Signs (Past 12 Hours) Vital Signs Temp Pulse Resp BP Pulse Ox O2 Del Method 02/15/25 07:46 36.8 C 70 16 114/73 94 Room Air Laboratory Results Short CBC 02/15/25 Range/Units 05:21 WBC 6.92 (4.8-10.8) K/ul Hgb 13.0 (12.0-16.0) g/dl Hct 38.9 (37.0-47.0) % Plt Count 208 (130-400) K/uL BMP 02/15/25 05:21 Sodium 138 Potassium 4.1 Chloride 104 Carbon Dioxide 29 BUN 13 Creatinine 0.77 Glucose 87 Calcium 8.7 Medications Administered Home Medications Medication Instructions Recorded Confirmed Last Taken atorvastatin 20 mg tablet 20 mg PO HS 02/13/25 02/13/25 02/12/25 calcium 500 mg (as citrate)-vit D3 1 tab PO HS 02/13/25 02/13/25 02/12/25 12.5 mcg (500 unit) chewable tablet cyanocobalamin (vitamin B-12) 1,000 mcg IM .Q OTHER MONTH 02/13/25 02/13/25 Unknown 1,000 mcg/mL injection solution loratadine 10 mg tablet (Claritin) 10 mg PO DAILY 02/13/25 02/13/25 02/13/25 multivitamin with iron 1 tab PO DAILY 02/13/25 02/13/25 02/13/25 omega 0-msh-zwa-fish oil 1,000 mg 1 cap PO HS 02/13/25 02/13/25 02/12/25 (120 mg-180 mg) capsule (Fish Oil) omeprazole 20 mg capsule,delayed 20 mg PO QAM 02/13/25 02/13/25 02/13/25 release semaglutide 1 mg/dose (4 mg/3 mL) 1 mg subcut WK 02/13/25 02/13/25 02/09/25 subcutaneous pen injector (Ozempic) Active Medications Generic Name Dose Route Start Last Admin Trade Name Freq PRN Reason Stop Dose Admin Acetaminophen 1,000 mg 02/14/25 09:00 02/15/25 08:35 Acetaminophen 500 Mg Tab PO 03/16/25 08:59 1,000 mg Q8H ROSA Administration Atorvastatin Calcium 20 mg 02/14/25 21:00 02/14/25 21:28 Atorvastatin 20 Mg Tab PO 03/16/25 20:59 20 mg HS ROSA Administration Calcium/Vitamin D 1 tab 02/14/25 21:00 02/14/25 21:28 Calcium 600mg + Vit D 400 Iu Tab PO 03/16/25 20:59 1 tab HS ROSA Administration Enoxaparin Sodium 40 mg 02/14/25 21:00 02/14/25 21:34 Enoxaparin Inj 40 Mg/0.4 Ml Syr SQ 03/16/25 20:59 40 mg HS ROSA Administration Hydromorphone HCl 0.5 mg 02/14/25 16:18 02/15/25 10:58 Hydromorphone Inj 0.5 Mg/0.5 Ml Syr IV 02/28/25 01:57 0.5 mg Q4H PRN Administration Severe Pain (Scale 7, 8, 9,10) Promethazine HCl 12.5 mg in 50.5 mls @ 202 mls/hr 02/14/25 08:50 02/15/25 08:33 Phenergan IV 03/16/25 08:49 Infused Q6H PRN Infusion Nausea And Vomiting Insulin Aspart 0 units 02/14/25 16:30 02/15/25 11:28 Insulin Aspart Per Unit Charge SC 03/16/25 01:57 Not Given ACHS ROSA Loratadine 10 mg 02/14/25 09:00 02/15/25 08:34 Loratadine 10 Mg Tab PO 03/16/25 08:59 Not Given DAILY ROSA Miscellaneous 15 - 30 gm 02/14/25 01:58 02/14/25 16:37 Carbohydrates For Hypoglycemia PO 03/16/25 01:57 15 gm UD PRN Administration Hypoglycemia Protocol Multivitamins/Minerals 1 tab 02/14/25 09:00 02/15/25 08:34 Cerovite Adv Formula Tab PO 03/16/25 08:59 Not Given DAILY ROSA Ondansetron HCl 4 mg 02/14/25 01:58 02/15/25 14:23 Ondansetron Inj 2 Mg/Ml 2 Ml Vial IV 03/16/25 01:57 4 mg Q6H PRN Administration Nausea Oxycodone HCl 10 mg 02/15/25 09:17 02/15/25 12:29 Oxycodone Hcl Ir 5 Mg Tab (Immediate Release) PO 02/28/25 16:15 10 mg Q4H PRN Administration Moderate Pain (Scale 4, 5, 6) Pantoprazole Sodium 40 mg 02/14/25 09:00 02/15/25 08:35 Pantoprazole 40 Mg Tab PO 03/16/25 08:59 40 mg QAM ROSA Administration Promethazine HCl 25 mg 02/15/25 09:16 02/15/25 13:34 Promethazine Hcl 25 Mg Tab PO 03/17/25 09:15 25 mg Q6H PRN Administration Nausea And Vomiting Tramadol HCl 50 mg 02/15/25 09:30 02/15/25 09:37 Tramadol Hcl 50 Mg Tablet PO 03/17/25 09:29 50 mg BID ROSA Administration (1) Right tibial fracture Encounter type: initial encounter Fracture morphology: unspecified fracture morphology Fracture type: closed Tibia location: proximal Qualified Code(s): S82.101A - Unspecified fracture of upper end of right tibia, initial encounter for closed fracture
[2025-02-15] MEDS: DICLOFENAC SOD 1% GEL 100 GM TUBE EXT SCH (15:29)
[2025-02-15] MEDS: DOCUSATE SODIUM 100 MG CAP PO SCH (21:30)
[2025-02-16] MEDS ORDERED: methylPREDNISolone 4 MG TAB, 6 DAY TAPER PO SCH (09:45)
[2025-02-16] MEDS: methylPREDNISolone 4 MG TAB PO SCH ×2 (10:09→12:48)
--- NOTE | 2025-02-16 11:21 | Hospitalist Progress Note ---
Date of Service February 16, 2025 Assessment & Plan (1) Right tibial fracture: Plan: Ms Dukes is a 59-year-old female past medical history significant for type 2 diabetes, dyslipidemia, fibromyalgia, bariatric surgery status, history of dysplastic nevus, presents with fall admitted for pain management of a right comminuted impacted fracture of lateral tibial plateau. Evaluated by pt and requires wheelchair with elevated right leg rest. Patient endorsed right hip pain--CT ordered with some mild osteoarthritis. #Right tibial plateau fracture Status post mechanical fall Pain control Ortho consulted for recommendations -NWB to right foot -wheelchair with elevated rest, working to get this prior to discharge Schedule tylenol, schedule tramadol oxycodone prn, Dilaudid for severe PT/OT #Diabetes Hold Ozempic Sliding scale Will monitor #Hyperlipidemia On statin #GERD #History of gastric bypass continue Omeprazole DVT prophylaxis SCDs/enoxaparin Disposition Medical floor Full code. 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 Exam Constitutional: WD/WN, vitals as above Respiratory: normal respiratory effort, lungs clear to auscultation Cardiovascular: RRR, no murmur, no edema Musculoskeletal: right knee in an immobilzer Results & Data Results & Data Vital Signs (Past 12 Hours) Vital Signs Temp Pulse Resp BP Pulse Ox O2 Del Method 02/16/25 08:56 98/61 L 02/16/25 08:14 36.8 C 73 16 97/62 L 94 Room Air Medications Administered Home Medications Medication Instructions Recorded Confirmed Last Taken atorvastatin 20 mg tablet 20 mg PO HS 02/13/25 02/13/25 02/12/25 calcium 500 mg (as citrate)-vit D3 1 tab PO HS 02/13/25 02/13/25 02/12/25 12.5 mcg (500 unit) chewable tablet cyanocobalamin (vitamin B-12) 1,000 mcg IM .Q OTHER MONTH 02/13/25 02/13/25 Unknown 1,000 mcg/mL injection solution loratadine 10 mg tablet (Claritin) 10 mg PO DAILY 02/13/25 02/13/25 02/13/25 multivitamin with iron 1 tab PO DAILY 02/13/25 02/13/25 02/13/25 omega 1-rvm-jns-fish oil 1,000 mg 1 cap PO HS 02/13/25 02/13/25 02/12/25 (120 mg-180 mg) capsule (Fish Oil) omeprazole 20 mg capsule,delayed 20 mg PO QAM 02/13/25 02/13/25 02/13/25 release semaglutide 1 mg/dose (4 mg/3 mL) 1 mg subcut WK 02/13/25 02/13/25 02/09/25 subcutaneous pen injector (Ozempic) Active Medications Generic Name Dose Route Start Last Admin Trade Name Freq PRN Reason Stop Dose Admin Acetaminophen 1,000 mg 02/14/25 09:00 02/16/25 08:18 Acetaminophen 500 Mg Tab PO 03/16/25 08:59 1,000 mg Q8H ROSA Administration Atorvastatin Calcium 20 mg 02/14/25 21:00 02/15/25 21:30 Atorvastatin 20 Mg Tab PO 03/16/25 20:59 20 mg HS ROSA Administration Calcium/Vitamin D 1 tab 02/14/25 21:00 02/15/25 21:30 Calcium 600mg + Vit D 400 Iu Tab PO 03/16/25 20:59 1 tab HS ROSA Administration Diclofenac Sodium 2 gm 02/15/25 13:45 02/16/25 06:13 Diclofenac Sod 1% Gel 100 Gm Tube EXT 03/17/25 13:44 Not Given Q8H [facility] Protocol Docusate Sodium 100 mg 02/15/25 21:00 02/16/25 08:18 Docusate Sodium 100 Mg Cap PO 03/17/25 20:59 100 mg BID ROSA Administration Enoxaparin Sodium 40 mg 02/14/25 21:00 02/15/25 21:30 Enoxaparin Inj 40 Mg/0.4 Ml Syr SQ 03/16/25 20:59 40 mg HS ROSA Administration Hydromorphone HCl 0.5 mg 02/14/25 16:18 02/15/25 10:58 Hydromorphone Inj 0.5 Mg/0.5 Ml Syr IV 02/28/25 01:57 0.5 mg Q4H PRN Administration Severe Pain (Scale 7, 8, 9,10) Promethazine HCl 12.5 mg in 50.5 mls @ 202 mls/hr 02/14/25 08:50 02/15/25 19:21 Phenergan IV 03/16/25 08:49 Infused Q6H PRN Infusion Nausea And Vomiting Insulin Aspart 0 units 02/14/25 16:30 02/16/25 11:15 Insulin Aspart Per Unit Charge SC 03/16/25 01:57 Not Given ACHS ROSA Loratadine 10 mg 02/14/25 09:00 02/16/25 08:15 Loratadine 10 Mg Tab PO 03/16/25 08:59 Not Given DAILY ROSA Methylprednisolone 8 mg 02/16/25 09:45 02/16/25 10:09 Methylprednisolone 4 Mg Tab PO 02/16/25 21:01 8 mg 0700,2100 ROSA Administration Miscellaneous 15 - 30 gm 02/14/25 01:58 02/14/25 16:37 Carbohydrates For Hypoglycemia PO 03/16/25 01:57 15 gm UD PRN Administration Hypoglycemia Protocol Multivitamins/Minerals 1 tab 02/14/25 09:00 02/16/25 08:15 Cerovite Adv Formula Tab PO 03/16/25 08:59 Not Given DAILY ROSA Ondansetron HCl 4 mg 02/14/25 01:58 02/15/25 14:23 Ondansetron Inj 2 Mg/Ml 2 Ml Vial IV 03/16/25 01:57 4 mg Q6H PRN Administration Nausea Oxycodone HCl 10 mg 02/15/25 09:17 02/15/25 20:15 Oxycodone Hcl Ir 5 Mg Tab (Immediate Release) PO 02/28/25 16:15 10 mg Q4H PRN Administration Moderate Pain (Scale 4, 5, 6) Pantoprazole Sodium 40 mg 02/14/25 09:00 02/16/25 08:18 Pantoprazole 40 Mg Tab PO 03/16/25 08:59 40 mg QAM ROSA Administration Promethazine HCl 25 mg 02/15/25 09:16 02/16/25 08:18 Promethazine Hcl 25 Mg Tab PO 03/17/25 09:15 25 mg Q6H PRN Administration Nausea And Vomiting Tramadol HCl 50 mg 02/15/25 09:30 02/16/25 08:57 Tramadol Hcl 50 Mg Tablet PO 11/10/25 09:29 50 mg BID ROSA Administration (1) Right tibial fracture Encounter type: initial encounter Fracture morphology: unspecified fracture morphology Fracture type: closed Tibia location: proximal Qualified Code(s): S82.101A - Unspecified fracture of upper end of right tibia, initial encounter for closed fracture
[2025-02-16] MEDS: ONDANSETRON 4 MG OD TAB PO PRN (17:31)
[2025-02-17] MEDS: methylPREDNISolone 4 MG TAB PO SCH (06:03)
[2025-02-17 07:45] VITALS: BP 117/72; PULSE 62; RESP 18; TEMP 97.7; O2SAT 98
--- NOTE | 2025-02-17 12:32 | Discharge Summary ---
Discharge Summary Date of Service February 17, 2025 Principal Dx & Hospital Course #1 = Principal Diagnosis (1) Right tibial fracture: Ms Dukes is a 59-year-old female past medical history significant for type 2 diabetes, dyslipidemia, fibromyalgia, bariatric surgery status, history of dysplastic nevus, presents with fall admitted for pain management of a right comminuted impacted fracture of lateral tibial plateau. Evaluated by pt and requires wheelchair with elevated right leg rest. Patient endorsed right hip pain--CT ordered with some mild osteoarthritis. Initially pain was a challenge to control; however, with a medrol dose pack, scheduled tylenol and tramadol with oxy prn--a regimen was established that was able to facilitate discharge. Patient advised to be nonweightbearing of right lower extremity. Given immobility, patient was recommended to start asa 81mg bid for dvt ppx. Patient's able to get multiple items to aid in patient mobility, including wheelchair. On day of discharge, patient's pain was well controlled, she felt her pain regimen to be manageable at home, and she had no other concerns #Right tibial plateau fracture #Right hip pain Status post mechanical fall Pain control Ortho consulted for recommendations -NWB to right foot -wheelchair with elevated rest, working to get this prior to discharge Schedule tylenol, schedule tramadol medrol dose pack oxycodone prn asa 81mg bid for dvt ppx, increase home ppi to 40mg daily #Diabetes resume ozempic #Hyperlipidemia On statin #GERD #History of gastric bypass continue Omeprazole Notes For Next Care Provider Medication Changes From Visit schedule tylenol q 8 h tramadol 50 mg bid oxycodone 10mg q4 prn for severe pain Phenergan and Zofran prn for nausea (alternate) Medrol dose pack Admission HPI Per Admitting Provider 59-year-old female past medical history significant for type 2 diabetes, dyslipidemia, fibromyalgia, bariatric surgery status, history of dysplastic nevus, presents with fall and found to have right tibial fracture. Patient states she was standing onto milk crate and trying to wash the car when she slipped fell down on the back. She could not move her right leg and was having significant pain and EMS was called and brought here. Denies hitting her head. Denies any loss of consciousness. Denies any chest pain. Denies dizziness. After falling down she felt nauseous. Still feel somewhat nauseous. No cough. No fevers. No runny nose or sore throat. Prior to falling down she was ambulating okay. She had a right knee arthroscopy surgery in the past and when climbing down steps she usually puts her left leg first and climbs down slowly.. Normal bowel and bladder movements .Hemodynamics are okay. Past medical history. As mentioned above. Past surgical history. Colonoscopy. Dental surgery. EGD. Excision of excess skin. Patellectomy.. Right knee arthroscopic surgery. Laparoscopy procedure liver. Laparoscopic gastric bypass surgery. Diagnostic laparoscopy. Laparoscopic cholecystectomy. Bilateral reduction of breast. Removal of neck Wrinkles. Tonsillectomy and adenoidectomy. Repair of bladder defect. Ultrasound-guided biopsy of the right breast. Smoking. . No smoking. No alcohol use. No drug use. Family history. Father had arthritic gout. Heart failure. Heart murmur. Obesity. Skin cancer. Mother had asthma. Colon cancer. Diabetes. Heart disease. Liver cancer. Lung disorder. Lung cancer. Osteoporosis. Stroke. Admission Exam Per Admitting Provider General- Not in distress Head- atraumatic Eyes- PERRL. ENT- oropharynx clear Neck- supple, no JVD. Lungs- clear to auscultation no wheezing or crackles Heart- regular rate and rhythm; no murmur, no gallop. Abdomen- normal bowel sounds, soft, nontender, no distension Extremities- right leg in splint Neuro- alert, oriented PERRL, no facial palsy; no dysarthria; Discharge Exam Constitutional WD/WN, vitals as above Respiratory normal respiratory effort, lungs clear to auscultation Cardiovascular RRR, no murmur, no edema Gastrointestinal (Abdomen) normal bowel sounds, soft, nontender, no hepatosplenomegaly Musculoskeletal right knee immobilzer in place Updated Medication List Medication Instructions Recorded Confirmed Type atorvastatin 20 mg tablet 20 mg PO HS 02/13/25 02/13/25 History calcium 500 mg (as citrate)-vit D3 1 tab PO HS 02/13/25 02/13/25 History 12.5 mcg (500 unit) chewable tablet cyanocobalamin (vitamin B-12) 1,000 mcg IM .Q OTHER MONTH 02/13/25 02/13/25 History 1,000 mcg/mL injection solution loratadine 10 mg tablet (Claritin) 10 mg PO DAILY 02/13/25 02/13/25 History multivitamin with iron 1 tab PO DAILY 02/13/25 02/13/25 History omega 5-fin-mga-fish oil 1,000 mg 1 cap PO HS 02/13/25 02/13/25 History (120 mg-180 mg) capsule (Fish Oil) semaglutide 1 mg/dose (4 mg/3 mL) 1 mg subcut WK 02/13/25 02/13/25 History subcutaneous pen injector (Ozempic) acetaminophen 500 mg tablet 1,000 mg (2 x 500 mg) PO Q8H #0 02/17/25 Rx (Tylenol Extra Strength) tabs aspirin 81 mg tablet 81 mg PO BID #60 tabs 02/17/25 Rx diclofenac sodium 1 % topical gel 2 g EXT Q8H #0 grams 02/17/25 Rx (Voltaren Arthritis Pain) methylprednisolone 4 mg tablet See Rx Instructions .Route 02/17/25 Rx .COMPLEX #13 tabs omeprazole 20 mg capsule,delayed 40 mg (2 x 20 mg) PO QAM 0 days 02/17/25 Rx release #30 caps ondansetron 4 mg disintegrating 4 mg PO Q4H PRN nausea and 02/17/25 Rx tablet vomiting #45 tabs oxycodone 5 mg tablet 10 mg (2 x 5 mg) PO Q4H PRN severe 02/17/25 Rx pain (scale score 7-10) #45 tabs polyethylene glycol 3350 17 gram 17 g PO DAILY PRN constipation 30 02/17/25 Rx oral powder packet (Miralax) days #30 ea promethazine 25 mg tablet 25 mg PO Q6H PRN nausea and 02/17/25 Rx vomiting 30 days #45 tabs tramadol 50 mg tablet 50 mg PO BID #30 tabs 02/17/25 Rx Hospital Stay Data Consultations 02/13/25 21:31 ED Decision to Admit Stat 02/14/25 17:07 Consult Orthopedic Surgery Routine Diagnostic Imagining Performed 02/13/25 19:40 CT knee RT wo con Stat 02/15/25 11:08 CT hip RT wo con Routine Pending Results Patient Have Any Pending Studies at Discharge: No Discharge Instructions Given to Patient (Per Discharging Provider) You sustained a fall and were found to have a tibial plateau fracture. You will follow up with your Orthopedic for continued care as an outpatient You were started on a steroid dose pack, please follow the following instructions: Day 2: (1 tablet) after dinner, (2tablet) at bedtime Day 3: (1 tablet) before breakfast, (1 tablet) after lunch, (1 tablet) after dinner, (1 tablet) at bedtime Day 4: (1tablet) before breakfast, (1tablet) after lunch, (1tablet) at bedtime Day 5: (1tablet) before breakfast, (1tablet) at bedtime Day 6: (1 tablet) before breakfast Please continue scheduled tylenol 1000mg every 8 hours Please start a twice daily aspirin 81mg to prevent clots. Please increase your pantoprazole to 40mg while taking aspirin two times a day. Pain and swelling management * Rest, ice, compression, and elevation (R.I.C.E.):This protocol is critical in the early days after your injury * Ice:Apply ice packs for 20 minutes every 1 to 2 hours while you are awake. Always place a thin cloth between the ice and your skin to prevent injury. * Elevation:Keep your leg elevated above the level of your heart to minimize swelling. Use pillows to prop up your foot and calf, but avoid placing a pillow directly under your knee. * Medication: * Take prescribed pain medication as directed. * Take pain medication with food to help prevent nausea. * To combat constipation caused by narcotic pain medication, ensure you drink plenty of fluids and use a stool softener if necessary. * Diet:A healthy, balanced diet with plenty of protein and fluids is important for the healing process. Avoid alcohol, which can cause dehydration. Activity and mobility * Weight-bearing:You will be [id number] (not putting any weight on the injured leg) for a set period, typically 6 to 12 weeks, as determined by your surgeon. * Assistive devices:Use crutches, a walker, or a wheelchair as instructed. For [id number] crutch use, support your weight with your hands, not your armpits. * Preventing blood clots:please take a baby aspirin (81mg) two times a day Brace care * Brace use:You are in an immobilizer to protect the healing bone. Wear it at all times, including while sleeping, unless otherwise instructed by your orthopedic. When to call your doctor or seek emergency care Contact your doctor immediately if you experience any of the following: * Pain that worsens or is not controlled by medication * A fever over 101.5F or chills * Severe or increasing pain and swelling in your calf or leg * Excessive or foul-smelling drainage from your incision, or if the incision appears red and warm * Numbness or tingling in the operative leg (some initial numbness from a nerve block is possible but report persistent symptoms) * Signs of a blood clot:Sudden chest pain, shortness of breath, or leg pain and swelling that does not decrease with elevation * Signs of compartment syndrome:Severe pain, especially when the muscles are stretched, a tingling or burning sensation, and tight or full-feeling muscles. This is a medical emergency. Total Time Total Time Spent Total Time Spent (In Minutes): 45
[2025-02-17] MEDS: INFLUENZA VACC TS2025-26(6m+)/PF (IIV3) 0.5mL Syr IM ONE (14:00)
[2025-02-17] MEDS ORDERED: methylPREDNISolone 4 MG TAB PO SCH (21:00)
[2025-02-18] MEDS ORDERED: methylPREDNISolone 4 MG TAB PO SCH (07:00)
[2025-02-19] MEDS ORDERED: methylPREDNISolone 4 MG TAB PO SCH (07:00)
[2025-02-20] MEDS ORDERED: methylPREDNISolone 4 MG TAB PO SCH (07:00)
[2025-02-21] MEDS ORDERED: methylPREDNISolone 4 MG TAB PO SCH (07:00)
== END 2025-02-17 15:05 | disposition home or self-care (01) | DRG 563 ==
LOC: ED 17:30 → SUATTDRO 23:41 → 3E 23:41 → MERGE 23:41 → 3E 02-14 01:04
DX: M79.7 Fibromyalgia; M16.11 Unilateral primary osteoarthritis, right hip; Y93.89 Activity, other specified; Z98.84 Bariatric surgery status; Z79.85 Long-term (current) use of injectable non-insulin antidiabetic drugs; Z79.899 Other long term (current) drug therapy; W08.XXXA Fall from other furniture, initial encounter; E78.5 Hyperlipidemia, unspecified; E11.9 Type 2 diabetes mellitus without complications; S82.141A Displaced bicondylar fracture of right tibia, initial encounter for closed fracture; Z88.0 Allergy status to penicillin; K21.9 Gastro-esophageal reflux disease without esophagitis